=== PATIENT | female | born 1975 | race African-American/Black ===

== ENCOUNTER 2017-04-28 05:57 | Emergency (ER) | payer SELFPAY ==
[~2017-04-28] VITALS: Ht 165.1 cm; Wt 56.7 kg
[~2017-04-28 05:57] MED LIST: ACHD5005 PO; ASPI-789 PO; CIPR-225 PO; CITA10TA PO; EXCEDRIN; LORA0.5T PO; MSL400TEC PO; MULT-963 PO; OXC5T PO; PRD10T PO
[2017-04-28 06:57] LABS: BILIRUBIN,URINE NEGATIVE (NEGATIVE); CLARITY,URINE SLIGHTLY CLOUDY; COLOR,URINE YELLOW; GLUCOSE, URINE (UA) NEGATIVE (NEGATIVE); KETONES,URINE 4+ (NEGATIVE); LEUKOCYTE ESTERASE ,URINE 1+ (NEGATIVE); NITRITE,URINE NEGATIVE (NEGATIVE); PH,URINE 5 (5-9); PROTEIN,URINE 2+ (NEGATIVE); UROBILINOGEN,URINE NORMAL (NORMAL)
[2017-04-28 07:13] LABS: BACTERIA,URINE FEW /HPF; RBC,URINE 25-50 /HPF; YEAST,URINE FEW /HPF
--- NOTE | 2017-04-28 07:28 | ED Fever ---
History of Present Illness General Chief Complaint: General Problems/Pain Stated Complaint: POSS FLU,POSS FEVER,HURT ALL OVER,SWEATY Nursing Triage Note: PT PRESENTS TO ED WITH COMPLAINT OF BODY ACHES, FEVER, NAUSEA, AND NOT BEING ABLE TO SLEEP. STATES SHE ALSO HAS A "BAD TOOTH". Sepsis Screen: No Definite Risk Source: patient History of Present Illness Time seen by provider: 06:35 Initial Comments C/O SUBJECTIVE FEVER, SWEATS AND CHILLS SINCE LAST PM C/O GENERALIZED BODY ACHES C/O LOWER BACK PAIN HAS MILD COUGH AND NASAL CONGESTION / DRAINAGE C/O NAUSEA,NO VOMITING OR DIARRHEA NO ABDOMINAL PAIN HAS NOT BEEN ABLE TO SLEEP FOR THE LAST 3 NIGHTS BECAUSE OF A BAD TOOTH--BEGAN HURTING WHILE EATING 3 DAYS AGO. SAW DENTIST YESTERDAY TO HAVE TOOTH PULLED, BUT PT'S BP WAS TOO HIGH, SO HE WOULD NOT PULL IT. APPOINTMENT RESCHEDULED FOR 05/12/17. WAS STARTED ON AMOXIL--HAS HAD 1 DOSE HAS APPOINTMENT AT [facility] 05/24/17 FOR BLOOD PRESSURE NO HISTORY OF BLOOD PRESSURE PROBLEMS. NO HEADACHE NO VISION CHANGES NO PARESTHESIAS OR MOTOR DEFICITS NO CHEST PAIN OR SHORTNESS OF BREATH NO PALPITATIONS PCP: [facility] Allergies and Home Medications Allergies Coded Allergies: No Known Drug Allergies (Verified , 01/03/07) Home Medications Aspirin/Acetaminophen/Caffeine 1 Each Tablet, 2 TAB PO DAILY PRN for HEADACHE, ( Reported) Cefdinir 300 Mg Capsule, 300 MG PO BID, #20 Prescribed by: KARLENE HURD on 04/28/17 0733 Ciprofloxacin HCl 500 Mg Tablet, 500 MG PO Q12H, #10 Ref 0 Prescribed by: CHIARA GREEN on 09/14/15 0702 Hydrocodone Bit/Acetaminophen 1 Each Tablet, 1 TAB PO Q4H PRN for pain, #20 Ref 0 Prescribed by: CHIARA GREEN on 09/14/15 0649 Lidocaine HCl 15 Ml Solution, 15 ML MM Q 1-2 HOURS, #100 Prescribed by: KARLENE HURD on 04/28/17 0733 Lorazepam 0.5 Mg Tablet, 0.25-0.5 MG PO Q12HR PRN for ANXIETY, #10 Ref 0 Prescribed by: CHIARA GREEN on 09/14/15 0649 Prednisone 10 Mg Tab, 0 PO UD, #60 Ref 0 Take 6 tabs(60mg)daily, decrease by 1 tab(10mg) every other day. Prescribed by: CHIARA GREEN on 09/14/15 0649 Constitutional: see HPI, chills, diaphoresis, fever, malaise, weakness EENTM: see HPI, dental problems, nose congestion, No throat pain Respiratory: see HPI, cough, No dyspnea on exertion, No phlegm, No short of breath, No wheezing Cardiovascular: no symptoms reported Gastrointestinal: see HPI, No abdominal pain, No diarrhea, nausea, No vomiting Genitourinary: no symptoms reported Musculoskeletal: see HPI, back pain, other (BODY ACHES) Skin: no symptoms reported Psychiatric/Neurological: No Symptoms Reported Hematologic/Lymphatic: No Symptoms Reported Immunological/Allergic: no symptoms reported Past Qkakslf-Ikwmor-Qipfxp Hx Patient Social History Alcohol Use: Past History (HISTORY OF ABUSE, DENIES RECENT USE, PER PT ON 04/28) Recreational 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 Smoking Status: Former Smoker (1 PPD--QUIT 2012) Type Used: Cigarettes (1 PPD, QUIT 2012) Recent Foreign Travel: No Contact w/Someone Who Travel: No Recent Infectious Disease Expo: No Recent Hopitalizations: Yes Physical Abuse: No Sexual Abuse: No Immunizations Up To Date Tetanus Booster (TDap): Unknown Surgeries History of Surgeries: Yes ( X 1; COLONOSCOPIES; 2006 BOWEL SURGERY, 2 PRIOR SURGERYS FOR SBO.) Surgeries: Abdominal, Section, Gallbladder, Tubal Ligation Respiratory History of Respiratory Disorde: No Cardiovascular History of Cardiac Disorders: No Neurological History of Neurological Disord: No Reproductive System : No Hx Reproductive Disorders: No Sexually Transmitted Disease: No HIV/AIDS: No 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 Genitourinary History of Genitourinary Disor: Yes Genitourinary Disorders: UTI-Chronic Gastrointestinal History of Gastrointestinal Di: Yes Gastrointestinal Disorders: Crohns Disease, Obstructive Bowel Musculoskeletal History of Musculoskeletal Dis: No Endocrine History of Endocrine Disorders: No HEENT History of HEENT Disorders: No Cancer History of Cancer: No Psychosocial History of Psychiatric Problem: Yes Behavioral Health Disorders: Depression Suicide Risk Score: 0 Integumentary History of Skin or Integumenta: No Blood Transfusions History of Blood Disorders: No Adverse Reaction to a Blood Tr: No Family Medical History Significant Family History: Diabetes Family Medial History: Diabetes mellitus Physical Exam Vital Signs Vital Sign - Last 12Hours 04/28/17 06:43 Temp 98.6 Pulse 82 Resp 20 B/P (MAP) 184/116 (138) Pulse Ox 100 O2 Delivery Room Air Capillary Refill : Less Than 3 Seconds General Appearance: WD/WN, no apparent distress, other (HAVING CHILLS, HEAVILY BUNDLED.) HEENT: PERRL/EOMI, other (CARIES AND TENDERNESS TO RIGHT UPPER FIRST MOLAR. NO SIGNIFICANT ADJACENT GUM SWELLING. 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, no motor/sensory deficits, alert, oriented x 3 Skin: normal color, warm/dry, tattoos/piercings Progress/Results/Core Measures Suspected Sepsis Recent Fever Within 48 Hours: No Infection Criteria Present: None New/Unexplained Altered Menta: No Sepsis Screen: No Definite Risk Sepsis Diagnosis: SIRS Temperature:98.6 Pulse: 82 Respiratory Rate: 20 Blood Pressure 184 /116 Mean: 138 Results/Orders Lab Results Laboratory Tests Test 04/28/17 06:31 Range/Units Urine Color YELLOW Urine Clarity SLIGHTLY CLOUDY Urine pH 5 5-9 Urine Specific [place] 1.015 L 1.016-1.022 Urine Protein 2+ H NEGATIVE Urine Glucose (UA) NEGATIVE NEGATIVE Urine Ketones 4+ H NEGATIVE Urine Nitrite NEGATIVE NEGATIVE Urine Bilirubin NEGATIVE NEGATIVE Urine Urobilinogen NORMAL NORMAL MG/DL Urine Leukocyte Esterase 1+ H NEGATIVE Urine RBC (Auto) 5+ H NEGATIVE Urine RBC 25-50 H /HPF Urine WBC 2-5 /HPF Urine Squamous Epithelial Cells 2-5 /HPF Urine Crystals NONE /LPF Urine Bacteria FEW H /HPF Urine Casts NONE /LPF Urine Mucus NEGATIVE /LPF Urine Yeast FEW H /HPF Urine Culture Indicated YES Urine Test NEGATIVE NEGATIVE Micro Results Microbiology 04/28/17 Influenza Types A,B Antigen (DAVID) - Final, Complete My Orders Orders - KARLENE HURD DO Influenza A And B Antigens (04/28/17 06:42) Hcg,Qualitative Urine (04/28/17 06:51) Ua Culture If Indicated (04/28/17 06:51) Urine Culture (04/28/17 06:31) Ketorolac Injection (Toradol Injection) (04/28/17 07:30) Ceftriaxone Injection (Rocephin Injectio (04/28/17 07:30) Lidocaine 1% Injection (Xylocaine 1% Inj (04/28/17 07:30) Clonidine Tablet (Catapres Tablet) (04/28/17 07:30) Oseltamivir 75 Mg (10's) Caps (Tamiflu 7 (04/28/17 09:00) Lidocaine 1% (Xylocaine 1%) (04/28/17 07:36) Rx-Oseltamivir Caps (Rx-Tamiflu Caps) (04/28/17 07:54) Medications Given in ED Current Medications Medications Dose Ordered Sig/Elsa Route Start Time Stop Time Status Last Admin Dose Admin Ceftriaxone Sodium 1,000 mg ONCE ONCE IM 04/28/17 07:30 04/28/17 07:31 DC 04/28/17 07:44 1,000 MG Clonidine HCl 0.1 mg ONCE ONCE PO 04/28/17 07:30 04/28/17 07:31 DC 04/28/17 07:45 0.1 MG Ketorolac Tromethamine 60 mg ONCE ONCE IM 04/28/17 07:30 04/28/17 07:31 DC 04/28/17 07:44 60 MG Lidocaine HCl 50 ml STK-MED ONCE .ROUTE 04/28/17 07:36 04/28/17 07:40 DC 04/28/17 07:44 2.1 ML Vital Signs/I&O Vital Sign - Last 12Hours 04/28/17 04/28/17 04/28/17 06:43 07:44 08:25 Temp 98.6 98.6 98.6 Pulse 82 82 Resp 20 20 B/P (MAP) 184/116 (138) Pulse Ox 100 100 O2 Delivery Room Air Capillary Refill : Less Than 3 Seconds Blood Pressure Mean: 138 Progress Note : Progress Note BP 123/94 AT DISMISSAL Departure Impression Impression: Primary Impression: Influenza-like illness Additional Impressions: Dental caries UTI (urinary tract infection) HTN (hypertension) Disposition: HOME, SELF-CARE Condition: Stable Departure-Patient Inst. Referrals: [facility] (PCP/Family) Primary Care Physician Patient Instructions: Controlling Your Blood Pressure Through Lifestyle, Flu, Adult (DC), High Blood Pressure (DC), Tooth Decay, Adult (DC), Urinary Tract Infection, Adult (DC) Add. Discharge Instructions: LOTS OF CLEAR LIQUIDS TYLENOL 1 GRAM/ MOTRIN 800 MG 4 TIMES A DAY FOR PAIN OR FEVER OVER THE COUNTER MEDICATIONS FOR COUGH AND CONGESTION STOP AMOXIL TAKE TAMIFLU TWICE A DAY X 5 DAYS FOLLOW UP WITH [facility] THIS WEEK FOR FURTHER EVALUATION OF ELEVATED BLOOD PRESSURE KEEP APPOINTMENT WITH DENTIST All discharge instructions reviewed with patient and/or family. Voiced understanding. Scripts Lidocaine HCl (Lidocaine HCl Viscous) 15 Ml Solution 15 ML MM Q 1-2 HOURS for Pain, #100 EA Prov: KARLENE HURD DO 04/28/17 Cefdinir (Cefdinir) 300 Mg Capsule 300 MG PO BID for FOR INFECTION, #20 CAP Prov: KARLENE HURD DO 04/28/17 KARLENE HURD DO Apr 28, 2017 07:28
[2017-04-28] MEDS ORDERED: cefTRIAXone 1 GM (ROCEPHIN) VIAL IM ONE (07:30)
[2017-04-28] MEDS ORDERED: cloNIDine 0.1 MG (CATAPRES) TAB PO ONE (07:30)
[2017-04-28] MEDS ORDERED: KETOROLAC 60 MG/2 ML VIAL IM ONE (07:30)
[2017-04-28] MEDS ORDERED: LIDOCAINE 1% INJ 20 ML (XYLOCAINE) VIAL INJ ONE (07:30)
[2017-04-28] MEDS ORDERED: LIDO15SO2 MM (07:33)
[2017-04-28] MEDS ORDERED: CEFD300C3 PO (07:33)
[2017-04-28] MEDS ORDERED: LIDOCAINE 1% INJ 50 ML (XYLOCAINE) VIAL ONE (07:36)
[2017-04-28] MEDS ORDERED: RX-OSELTAMIVIR 75 MG (TAMIFLU) BOX OF 10 PO ONE (07:54)
[2017-04-28 08:25] VITALS: BP 123/94
[2017-04-28] MEDS ORDERED: OSELTAMIVIR 75 MG (TAMIFLU) BOX OF 10 PO SCH (09:00)
[2017-04-28] MEDS ORDERED: SULF1TAB35 PO (16:34)
== END 2017-04-28 08:20 | disposition home or self-care (01) ==
LOC: EDUNIT# 05:57 → ER 06:00
DX: J11.1 Influenza due to unidentified influenza virus with other respiratory manifestations (principal); K02.9 Dental caries, unspecified; N39.0 Urinary tract infection, site not specified; I10 Essential (primary) hypertension; F32.9 Major depressive disorder, single episode, unspecified; E11.9 Type 2 diabetes mellitus without complications; Z79.82 Long term (current) use of aspirin; Z98.51 Tubal ligation status; Z87.59 Personal history of other complications of pregnancy, childbirth and the puerperium
CPT/HCPCS: 81000; 84703; 87088; 87804; 99284

== ENCOUNTER → 2018-01-24 | Outpatient (CLI) | payer SELFPAY ==
[~2018-01-24] MED LIST changes: +CEFD300C3 PO; +IOHEXOL 350 MG/ML 100 ML (OMNIPAQUE 350) VIAL IV ONE; +LIDO15SO2 MM; +NS 250 ML (IVPB) BAG IV ONE; +SULF1TAB35 PO
--- NOTE | 2018-01-24 17:17 | Diagnostic Imaging Report ---
PROCEDURE: CT abdomen and pelvis with contrast. TECHNIQUE: Multiple contiguous axial images were obtained through the abdomen and pelvis after administration of intravenous contrast. INDICATION: Mid abdominal pain radiating to the back. History of Crohn's disease. FINDINGS: Gallbladder is absent. The liver and bile ducts are normal. The spleen, pancreas, and adrenals are normal. Kidneys, ureters, and bladder are normal. There is some air and fecal material within a nondilated colon. There are multiple dilated loops of jejunum. These have a diameter upwards of 5 cm. The ileum is nondilated. There is some mucosal thickening of a nondilated terminal ileum which may be related to Crohn's disease. There is no edema of the dilated jejunal loops. There is no intramural or free intraperitoneal air. IMPRESSION: There are changes consistent with small bowel obstruction in a pattern similar to a prior study from 09/12/2015. Dictated by: Dictated on workstation # [id number]
== END ==
LOC: RAD 16:12
PROVIDERS: ATTEND Nurse Practitioner Community Health
DX: R10.10 Upper abdominal pain, unspecified (principal); Z87.19 Personal history of other diseases of the digestive system
CPT/HCPCS: 74177

== ENCOUNTER 2019-06-05 14:52 | Outpatient (CLI) | payer BC ==
[~2019-06-05] VITALS: Ht 165 cm; Wt 65.9 kg
[~2019-06-05 14:52] MED LIST changes: -IOHEXOL 350 MG/ML 100 ML (OMNIPAQUE 350) VIAL IV ONE; -LIDO15SO2 MM; +LIDO20SO23 MM; +MULT1CAP27 PO; -NS 250 ML (IVPB) BAG IV ONE; +POTA99TA21 PO
== END 2019-06-05 15:09 | disposition home or self-care (01) ==
LOC: PREOP 14:52
PROVIDERS: ATTEND Surgery
DX: Z01.818 Encounter for other preprocedural examination (principal)

== ENCOUNTER 2019-06-08 07:23 | Day surgery (SDC) | payer BC ==
[2019-06-08] VITALS (12 sets, daily range): BP systolic 96–157; BP diastolic 60–98
[~2019-06-08] VITALS: Ht 165 cm; Wt 65.9 kg
[2019-06-08] MEDS ORDERED: BUP/EPI 0.5% 1:200,000 (SENSORCAINE) 30 ML VIAL ONE (07:46)
--- NOTE | 2019-06-08 07:59 | Progress Note-Pre Operative ---
Pre-Operative Progress Note H&P Reviewed The H&P was reviewed, patient examined and no changes noted. Date Seen by Provider: Jun 08, 2019 Time Seen by Provider: 07:58 Date H&P Reviewed: Jun 08, 2019 Time H&P Reviewed: 07:58 Pre-Operative Diagnosis: incisional hernia CHLOÉ GARG DO Jun 08, 2019 07:58
[2019-06-08] MEDS ORDERED: MIDAZOLAM 2 MG/2 ML (VERSED) VIAL IV ONE (08:00)
[2019-06-08] MEDS ORDERED: fentaNYL INJECTION 100 MCG/2 ML AMP ONE ×2 (08:07→09:23)
[2019-06-08] MEDS ORDERED: MIDAZOLAM 2 MG/2 ML (VERSED) VIAL ONE (08:07)
[2019-06-08] MEDS: LACTATED RINGERS 1,000 ML IV PRN ×2 (08:28→09:21)
[2019-06-08] MEDS ORDERED: ceFAZolin INJECTION 1,000 MG in WATER (STERILE) FOR INJECTION 10 ML IV ONE (08:30)
[2019-06-08 08:35] LABS: BASOPHILS % (AUTO) 0 % (0-10); EOSINOPHILS # (AUTO) 0.1 10^3/uL (0.0-0.3); EOSINOPHILS % (AUTO) 1 % (0-10); HEMATOCRIT 39 % (35-52); HEMOGLOBIN 12.7 G/DL (11.5-16.0); LYMPHOCYTES % (AUTO) 14 % (12-44); MEAN CORPUSCULAR HEMOGLOBIN 30 PG (25-34); MEAN CORPUSCULAR HGB CONC 33 G/DL (32-36); MEAN CORPUSCULAR VOLUME 92 FL (80-99); MEAN PLATELET VOLUME 9.6 FL (7.4-10.4); MONOCYTES # (AUTO) 0.8 X 10^3 (0.0-1.0); MONOCYTES % (AUTO) 11 % (0-12); NEUTROPHILS # (AUTO) 5.5 X 10^3 (1.8-7.8); NEUTROPHILS % (AUTO) 74 % (42-75); PLATELET COUNT 244 10^3/uL (130-400); WHITE BLOOD COUNT 7.5 10^3/uL (4.3-11.0)
[2019-06-08] MEDS ORDERED: TURM538C PO (08:47)
[2019-06-08] MEDS ORDERED: DEXAMETHASONE 10 MG/ML (DECADRON) 1 ML VIAL ONE (09:00)
[2019-06-08] MEDS ORDERED: SEVOFLURANE (ULTANE) 15 ML INHAL SOLN ONE (09:00)
[2019-06-08] MEDS ORDERED: ROCURONIUM 10 MG/ML 5 ML SYRINGE IV ONE (09:00)
[2019-06-08] MEDS ORDERED: LIDOCAINE PF 2% 5 ML (XYLOCAINE) VIAL ONE (09:00)
[2019-06-08] MEDS ORDERED: ONDANSETRON 4 MG/2 ML (SDV) Z0FRAN ONE (09:00)
[2019-06-08] MEDS ORDERED: proPOfol 200 MG/20 ML (DIPRIVAN) VIAL IV ONE (09:00)
[2019-06-08] MEDS ORDERED: NEOSTIGMINE 3 MG/3 ML VIAL ONE (09:09)
[2019-06-08] MEDS ORDERED: GLYCOPYRROLATE 0.2 MG/ML (ROBINUL) 2 ML VIAL ONE (09:09)
[2019-06-08] MEDS ORDERED: morphine INJ 10 MG/ML 1ML (SYR OR VIAL) IVP ONE (09:15)
[2019-06-08] MEDS ORDERED: fentaNYL INJECTION 100 MCG/2 ML AMP IVP ONE (09:15)
[2019-06-08] MEDS ORDERED: MEPERIDINE (DEMEROL) INJ 50 MG/ML IVP ONE (09:15)
[2019-06-08] MEDS ORDERED: ONDANSETRON 4 MG/2 ML (SDV) Z0FRAN IVP PRN (09:15)
[2019-06-08] MEDS ORDERED: ACHD5005 PO (09:41)
[2019-06-08] MEDS ORDERED: DOCU-143 PO (09:41)
--- NOTE | 2019-06-08 09:42 | Discharge Inst-Simple/Standard ---
Discharge Inst-Standard Discharge Medications New, Converted or Re-Newed RX: RX on Chart Patient Instructions/Follow Up Plan of Care/Instructions/FU: 2 weeks Osei Activity as Tolerated: No Discharge Diet: Regular Diet Other Inst to Patient Follow up Appt: Make appointment for 2 week. Instructions: No lifting greater than 10 pounds. No strenuous activity. May shower in 24 hours, no tub bath or soaking. Use incentive spirometer at home as directed. No Smoking Skin/Wound Care: You have special glue over your incision that will fall off on it's own. Symptoms to Report: Appetite Changes, Extremity Discoloration, Numbness/Tingling, Swelling Increased, Bleeding Excessive, Eyesight Changes, Pain Increased, Urine Color Change, Constipation(Persistent), Fever over 101 degree F, Pain/Pressure in chest, Urinating Difficulty, Cough Up/Vomit Blood, Heart Beat Irreg/Pounding, Pain/Pressure in jaw, Vaginal Bleeding Increase, Cramps in feet or legs, Lightheadedness, Pain/Pressure in shoulder, Diarrhea(Persistent), Memory Changes Suddenly, Questions/Concerns, Weight gain consecutive days, Dizziness/Fainting, Nausea/Vomiting, Shortness of Breath, Weight gain over 2 pounds If questions or concerns contact your physician Or seek help at emergency department. CHLOÉ GARG DO Jun 08, 2019 09:41
--- NOTE | 2019-06-08 09:47 | Progress Note-Post Operative ---
Post-Operative Progess Note Surgeon (s)/Insurance Claim Approver (s) Surgeon CHLOÉ GARG DO Insurance Claim Approver: Dr. Shepherd to assist in retraction dissection and closure Pre-Operative Diagnosis incisional hernia Post-Operative Diagnosis multiple incisional hernia with one with incarcerated fat Procedure & Operative Findings Date of Procedure 06/08/19 Procedure Performed/Findings PROCEDURE: Laparoscopic incarcerated incisional hernia repair with mesh. COMPLICATIONS: None. INDICATIONS: The patient is a 43, female with an incisional hernia, which has continued to increase in size and cause discomfort. The patient was explained the risk and benefits of the procedure and wished to proceed with the procedure. Consent was signed on the chart. DESCRIPTION OF PROCEDURE: The patient was taken into the operating suite, prepped and draped in sterile fashion. Surgical pause was performed. Local anesthetic was infiltrated in left upper quadrant. A 15 blade scalpel was used to make a small skin incision. Cautery was used to dissect down to the fascia, which was then scored and divided the muscle, went through the posterior sheath and a balloon trocar was inserted into the abdomen. The abdomen was then insufflated. Several incisional hernia was present. A 5 mm trocar was placed in the right lower quadrant and a 5 mm trocar was placed in left lower quadrant. The defect was then closed using 0 Vicryl with a Amos-Mesha and Ligasure was used to take down falciform discovering 2 other hernias one with incarcerated fat .Echo Ventralight mesh 6x8 inches was then inserted in the abdomen grabbed through the stab incision. The balloon was inflated on the mesh. Circumferential tacks were placed with a SecureStrap Tacker. The balloon was then removed and inner crown was created as well. The mesh was tacked with pressure being decreased. The 12 mm peritoneal defect and fascial defect was then closed using 0 Vicryl. The abdomen was then desufflated,the trocars were removed. The skin was then closed using 4-0 Monocryl in a running subcuticular fashion. The abdomen was washed and dried and Skin Affix was placed over the incisions. The patient tolerated procedure well without any complications. She was taken to recovery room in stable condition. Anesthesia Type gen Estimated Blood Loss Estimated blood loss (mL): min Specimens/Packing Specimens Removed CHLOÉ Butler DO Jun 08, 2019 09:47
[2019-06-08] MEDS ORDERED: HYDROcodone/APAP 5 MG/325 MG (LORTAB) TAB PO ONE ×2 (11:00→12:15)
--- NOTE | 2019-06-08 11:17 | Anesthesia-General Post-Op ---
General Patient Condition Mental Status/LOC: Same as Preop Cardiovascular: Satisfactory Nausea/Vomiting: Absent Respiratory: Satisfactory Pain: Controlled Complications: Absent Post Op Complications Complications None Follow Up Care/Instructions Patient Instructions None needed. Anesthesia/Patient Condition Patient Condition Patient is doing well, no complaints, stable vital signs, no apparent adverse anesthesia problems. No complications reported per nursing. ЕКАТЕРИНА BOLAND CRNA Jun 08, 2019 11:17
[2019-06-08] MEDS ORDERED: CYCLOBENZAPRINE 10 MG (FLEXERIL) TAB PO ONE (11:45)
--- NOTE | 2019-06-08 12:00 | NUR ---
PT C/O OF SEVERE PAIN TO ABDOMEN, NO CHANGE FROM PREVIOUS ASSESSMENT, SITE IS SOFT, 5 INCISION SITES W/ DERMABOND INTACT. ICE PACK IN PLACE, CALL LIGHT IN REACH, SIDE RAILS UP X2.
--- NOTE | 2019-06-08 12:09 | NUR ---
new prescription called into [facility] for Flexeril 10 mg PO TID PRN/spasms #[address] Franz.
[2019-06-08] MEDS ORDERED: KETOROLAC 30 MG/ML VIAL ONE (13:53)
--- NOTE | 2019-06-08 13:55 | NUR ---
DR. GARG NOTIFIED PT CONTINUE TO C/O PAIN RATES 11/19. NEW ORDER RECEIVED FOR TORODOL, SEE EMAR FOR DETAILS.
[2019-06-08] MEDS ORDERED: KETOROLAC 30 MG/ML VIAL IVP ONE (14:00)
== END 2019-06-08 14:30 | disposition home or self-care (01) ==
LOC: SDC 07:23
PROVIDERS: ATTEND Surgery
DX: K43.0 Incisional hernia with obstruction, without gangrene (principal); K21.9 Gastro-esophageal reflux disease without esophagitis; Z98.51 Tubal ligation status; Z87.891 Personal history of nicotine dependence; Z90.49 Acquired absence of other specified parts of digestive tract; Z79.899 Other long term (current) drug therapy; Z83.3 Family history of diabetes mellitus
CPT/HCPCS: 36415; 84703; 85025; 87081